=== PATIENT | female | born 1965 | race Caucasian/White ===

== ENCOUNTER 2016-08-16 12:21 | Outpatient (CLI) | payer OTHER ==
--- NOTE | 2016-08-16 14:06 | DIAGNOSTIC IMAGING REPORT ---
PROCEDURE: MR UPPER EXTREMITY W/O CONT-RT INDICATION: RT SHOULDER IMPINGEMENT TECHNIQUE: PD and FAT-SAT PD, axial, and coronal-oblique images. PD and STIR sagittal-oblique images. COMPARISON: Right shoulder MRI 05/26/2014. FINDINGS: Mild AC joint degenerative changes with caudal angulation of type 2 acromion resulting in mild impingement. There is a 5 mm AP full-thickness tear of the distal supraspinatus tendon. There is also some undersurface fraying of the supraspinatus tendon. Glenoid labrum appears intact. Normal glenohumeral ligaments. Normal bicipital tendon. No muscular atrophy. No suspicious osseous lesions. IMPRESSION: 1. 5 mm full-thickness tear of the distal supraspinatus tendon. There is also fraying and partial thickness tears of the supraspinatus tendon undersurface 2. Mild impingement
== END 2016-08-16 23:00 ==
LOC: MRI SRH 12:21
DX: M75.41 Impingement syndrome of right shoulder (principal); S46.811A Strain of other muscles, fascia and tendons at shoulder and upper arm level, right arm, initial encounter

== ENCOUNTER → 2016-09-27 | Outpatient (CLI) | payer OTHER ==
--- NOTE | 2016-09-27 12:00 | DIAGNOSTIC IMAGING REPORT ---
PROCEDURE: MG BILATERAL SCREENING W/CAD INDICATION: Screening, personal history of benign left breast biopsy, family history of mother with breast cancer TECHNIQUE: Standard CC and MLO views bilaterally. Computer aided detection was used. COMPARISON: 09/16/2013, 07/29/2008, 06/16/2008 FINDINGS: Moderately dense, nodular fibroglandular tissue is present bilaterally. No developing densities, areas of architectural distortion, or suspicious microcalcifications. IMPRESSION: 1. Stable mammograms without radiographic evidence of malignancy. RESULT CODE: 2- Benign findings. A. A negative report should not delay biopsy if a dominant or clinically suspicious mass is present. 10-15% of cancers are not identified by x-ray. B. A negative report may reinforce clinical impression. C. Adenosis and dense breasts may obscure an underlying neoplasm. D. False positive reports average 6-10%. E.. A yearly screening mammogram is recommended. A reminder letter will be scheduled.
== END ==
LOC: MAM SRH 11:01
DX: Z12.31 Encounter for screening mammogram for malignant neoplasm of breast (principal); Z98.890 Other specified postprocedural states; Z80.3 Family history of malignant neoplasm of breast